=== PATIENT | male | born 2005 | race Caucasian/White ===

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

== ENCOUNTER 2024-05-15 23:31 | Emergency (ER) | payer OTHER ==
[~2024-05-15] VITALS: Ht 172.7 cm; Wt 72.7 kg
[~2024-05-15 23:31] MED LIST: OMEPRAZOLE20 MG PO; ONDANSETRON ODT4 MG PO; PRILOSEC OTC20 MG PO
[2024-05-15] MEDS ORDERED: LACTATED RINGER'S 1,000 ML IV ONE (23:45)
[2024-05-15] MEDS ORDERED: DIPHTH,PERTUSS(ACELL),TET VAC 0.5 ML SYRINGE IM ONE (23:45)
[2024-05-15] MEDS ORDERED: CEFAZOLIN SODIUM 2 GM/20 ML SYR IV ONE (23:45)
[2024-05-16] MEDS ORDERED: MORPHINE SULFATE 4 MG/ML VIAL ONE (00:07)
[2024-05-16] MEDS ORDERED: ondansetron HCL 4 MG/2 ML VIAL ONE (00:07)
[2024-05-16] MEDS ORDERED: ondansetron HCL 4 MG/2 ML VIAL IV ONE (00:15)
[2024-05-16] MEDS ORDERED: MORPHINE SULFATE 4 MG/ML VIAL IV ONE (00:15)
[2024-05-16 00:36] LABS: HEMATOCRIT 40.2 % (35.0-50.0); HEMOGLOBIN 13.9 g/dL (12.0-18.0); MCH 29.4 (27-36); MCHC 34.4 g/dl (30-36); MCV 85.5 fl (81-99); PLATELET COUNT 298 K/uL (140-440); RBC 4.71 M/ul (4.3-5.7); RDW 13.4 (10.5-15.0)
[2024-05-16] MEDS ORDERED: LIDOCAINE/RACEPINEP/TETRACAINE 3 ML SYR TOP ONE (00:45)
[2024-05-16 00:55] LABS: ALBUMIN 3.8 g/dL (3.4-5.0); ALBUMIN/GLOBULIN RATIO 1.09 (1.1-2.4); ALCOHOL, MEDICAL <3 ng/dL (<3); ALKALINE PHOSPHATASE 99 U/L (46-116); ALT (SGPT) 31 U/L (14-59); ANION GAP 14.4 (7-21); AST (SGOT) 20 U/L (15-37); BILIRUBIN, TOTAL 0.3 mg/dL (0.2-1.0); BUN/CREATININE RATIO 13.51 (6.0-28.6); CALCIUM 8.9 mg/dL (8.5-10.1); CARBON DIOXIDE 26 mmol/L (21-32); CHLORIDE 100 mmol/L (98-107); CREATININE, SERUM 1.11 mg/dL (0.70-1.30); GLOMERULAR FILTRATION RATE,EST 98 mL/min (>60); POTASSIUM 3.4 mmol/L (3.5-5.1); PROTEIN, TOTAL 7.3 g/dL (6.4-8.2); UREA NITROGEN 15 mg/dL (7-18)
[2024-05-16 01:06] LABS: BANDS, MANUAL DIFF 2; LYMPHOCYTES, MANUAL DIFF 8; MONOCYTES, MANUAL DIFF 8; NEUTROPHILS, MANUAL DIFF 82
[2024-05-16 01:19] LABS: ABO O; RH POSITIVE
[2024-05-16 01:20] LABS: ANTIBODY SCREEN NEGATIVE
[2024-05-16 02:11] LABS: BILIRUBIN, URINE NEGATIVE (negative); BLOOD/HGB, URINE TRACE-I (Negative); KETONE, URINE NEGATIVE (Negative); LEUK ESTERASE, URINE NEGATIVE (negative); NITRITE, URINE NEGATIVE (negative)
[2024-05-16] MEDS ORDERED: PERCOCET 5-3251 EACH PO (02:22)
[2024-05-16 02:26] LABS: AMPHETAMINES, URINE NEGATIVE (NEGATIVE); BARBITURATES, URINE NEGATIVE (NEGATIVE); BENZODIAZEPINE, URINE NEGATIVE (NEGATIVE); BUPRENORPHINE, URINE NEGATIVE (NEGATIVE); CANNABINOID, URINE POSITIVE (NEGATIVE); COCAINE, URINE NEGATIVE (NEGATIVE); ECSTASY, URINE NEGATIVE (NEGATIVE); FENTANYL, URINE NEGATIVE (NEGATIVE); METHADONE, URINE NEGATIVE (NEGATIVE); OPIATES, URINE POSITIVE (NEGATIVE); OXYCODONE, URINE NEGATIVE (NEGATIVE); PHENCYCLIDINE, URINE NEGATIVE (NEGATIVE)
[2024-05-16] MEDS ORDERED: CEPHALEXIN500 M1 PO (02:26)
[2024-05-16] MEDS ORDERED: OXYCODONE/ACETAMINOPHEN 1 TAB HOME.PACK PO ONE (02:30)
[2024-05-16 02:32] LABS: BACTERIA, URINE NONE SEEN /hpf (negative); CASTS, URINE HYALINE 1+ \\lpf; COLLECTION TYPE, URINE CLEAN CATCH; CRYSTALS, URINE NONE SEEN (0-1+); EPITHELIAL CELLS, URINE 0 /lpf (0-1+); RED BLOOD CELLS, URINE 0-1 /hpf (0-5); REFLEX CULTURE, URINE No (No); WHITE BLOOD CELLS, URINE 0-1 /HPF (0-5)
[2024-05-16 03:51] VITALS: BP 150/93
== END 2024-05-16 03:30 | disposition home or self-care (01) ==
LOC: ED 23:31
PROVIDERS: Internal Medicine
DX: S42.352A Displaced comminuted fracture of shaft of humerus, left arm, initial encounter for closed fracture (principal); S91.012A Laceration without foreign body, left ankle, initial encounter; V89.2XXA Person injured in unspecified motor-vehicle accident, traffic, initial encounter; J45.909 Unspecified asthma, uncomplicated; Z79.899 Other long term (current) drug therapy
CPT/HCPCS: 12004; 36415; 70450; 71260; 72125; 73060; 73090; 73610; 73630; 74177; 80053; 80307; 81001; 85025; 86850; 86900; 86901; 90471; 90715; 99284-25; G0480; J0690; J2270; J2405; J7121; Q9967

== ENCOUNTER 2024-05-28 12:32 | Emergency (ER) | payer OTHER ==
[~2024-05-28] VITALS: Ht 172.7 cm; Wt 70.0 kg
[~2024-05-28 12:32] MED LIST changes: +CEPHALEXIN500 M1 PO; +PERCOCET 5-3251 EACH PO
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
[2024-05-28] MEDS ORDERED: CEPHALEXIN MONOHYDRATE 500 MG CAP PO ONE (14:45)
[2024-05-28] MEDS ORDERED: CEPHALEXIN500 M1 PO (14:50)
[2024-05-28 15:05] VITALS: BP 140/88
== END 2024-05-28 15:05 | disposition home or self-care (01) ==
LOC: ED 12:32
DX: S91.011D Laceration without foreign body, right ankle, subsequent encounter (principal); V89.2XXD Person injured in unspecified motor-vehicle accident, traffic, subsequent encounter; J45.909 Unspecified asthma, uncomplicated
CPT/HCPCS: 99282; A9270

== ENCOUNTER 2024-08-24 11:20 | Emergency (ER) | payer OTHER ==
[~2024-08-24] VITALS: Ht 172.7 cm; Wt 63.0 kg
[2024-08-24] MEDS ORDERED: PROCHLORPERAZINE EDISYLATE 10 MG/2 ML VIAL IV ONE (11:45)
[2024-08-24] MEDS ORDERED: PANTOPRAZOLE SODIUM 40 MG/10 ML VIAL IV ONE (11:45)
[2024-08-24] MEDS ORDERED: SODIUM CHLORIDE 0.9% 1,000 ML IV ONE (11:45)
[2024-08-24 12:17] LABS: BASOPHILS 0.5 % (0.2-1.2); EOSINOPHILS 0.1 % (0.8-7.0); LYMPHOCYTES 16.9 % (21.8-53.1); MCH 28.9 PG (25.7-32.2); MCHC 34.7 g/dL (32.3-36.5); MCV 83.4 fL (79.0-92.2); MONOCYTES 8.6 % (5.3-12.2); NEUTROPHILS 73.4 % (34.0-67.9); RBC 6.02 M/uL (4.63-6.08)
[2024-08-24 12:32] LABS: ALT (SGPT) 25.0 U/L (14-59); AST (SGOT) 17.0 U/L (15-37); GLOMERULAR FILTRATION RATE,EST 97.0 mL/min (>60); PROTEIN, TOTAL 9.3 g/dL (6.4-8.2); UREA NITROGEN 23.0 mg/dL (7-18)
[2024-08-24] MEDS ORDERED: METOCLOPRAMIDE HCL 10 MG/2 ML SDV IV ONE (14:00)
[2024-08-24] MEDS ORDERED: SODIUM CHLORIDE 0.9% 1,000 ML IV PRN (14:00)
[2024-08-24] MEDS ORDERED: ONDANSETRON ODT8 MG PO (16:21)
[2024-08-24 16:27] VITALS: BP 142/90
== END 2024-08-24 16:27 | disposition home or self-care (01) ==
LOC: ED 11:20
PROVIDERS: Emergency Medicine
DX: R11.2 Nausea with vomiting, unspecified (principal); F12.90 Cannabis use, unspecified, uncomplicated; R10.9 Unspecified abdominal pain; J45.909 Unspecified asthma, uncomplicated
CPT/HCPCS: 36415; 74177; 80053; 83690; 85025; 96361; 96375; 99284-25; J0780; J1200; J2405; J2470; J2765; J7030; Q9967

== ENCOUNTER 2024-10-19 12:25 | Emergency (ER) | payer OTHER ==
[~2024-10-19] VITALS: Ht 172.7 cm; Wt 67.2 kg
[~2024-10-19 12:25] MED LIST changes: +ONDANSETRON ODT8 MG PO
[2024-10-19] MEDS ORDERED: SODIUM CHLORIDE 0.9% 1,000 ML IV ONE (13:45)
[2024-10-19 14:15] LABS: BASOPHILS 0.2 % (0.2-1.2); EOSINOPHILS 0.1 % (0.8-7.0); LYMPHOCYTES 14.5 % (21.8-53.1); MCH 29.0 PG (25.7-32.2); MCHC 35.2 g/dL (32.3-36.5); MCV 82.3 fL (79.0-92.2); MONOCYTES 9.7 % (5.3-12.2); NEUTROPHILS 74.9 % (34.0-67.9); RBC 5.72 M/uL (4.63-6.08)
[2024-10-19] MEDS ORDERED: METOCLOPRAMIDE HCL 10 MG/2 ML SDV IV ONE (14:15)
[2024-10-19 14:32] LABS: ALT (SGPT) 24.0 U/L (14-59); AST (SGOT) 18.0 U/L (15-37); GLOMERULAR FILTRATION RATE,EST 77.0 mL/min (>60); PROTEIN, TOTAL 9.2 g/dL (6.4-8.2); UREA NITROGEN 31.0 mg/dL (7-18)
[2024-10-19 15:29] LABS: BLOOD/HGB, URINE SMALL (Negative); KETONE, URINE NEGATIVE (Negative); LEUK ESTERASE, URINE NEGATIVE (negative); NITRITE, URINE NEGATIVE (negative)
[2024-10-19 15:36] LABS: EPITHELIAL CELLS, URINE NONE SEEN /lpf (0-1+)
[2024-10-19 15:37] LABS: BACTERIA, URINE NONE SEEN /hpf (negative); CASTS, URINE HYALINE 1+ \\lpf; CRYSTALS, URINE AMORPHOUS URATES 1+ (0-1+); REFLEX CULTURE, URINE No (No)
[2024-10-19] MEDS ORDERED: POTASSIUM CHLORIDE 10 MEQ/100 ML BAG IV SCH (15:45)
[2024-10-19] MEDS ORDERED: REGLAN10 MG PO (17:08)
[2024-10-19 19:03] VITALS: BP 149/90
== END 2024-10-19 19:03 | disposition home or self-care (01) ==
LOC: ED 12:25
PROVIDERS: Emergency Medicine
DX: R11.2 Nausea with vomiting, unspecified (principal); E87.6 Hypokalemia; J45.909 Unspecified asthma, uncomplicated
CPT/HCPCS: 36415; 80053; 81001; 83690; 85025; 96361; 96365; 96366; 96375; 99284-25; J1200; J2765; J3480; J7030